=== PATIENT | male | born 1975 | race American Indian/Alaskan Native ===

== ENCOUNTER 2018-03-01 18:35 | Emergency (ER) | payer OTHER ==
[2018-03-01 18:45] VITALS: TEMP 98.9; O2SAT 98
--- NOTE | 2018-03-01 18:48 | ED PDOC ---
Arrival/HPI - General Chief Complaint: ENT Problem Time Seen by Provider: 03/01/18 18:48 Historian: Patient - History of Present Illness Narrative History of Present Illness (Text): 03/01/18 18:48 This 42 yo male with pmh HTN, presents to this ED c/o left sore throat x 3 days. Patient stated he was seen at [facility] x 2 days ago, and he was told he had a viral throat infection. Patient stated symptoms has progressively worsen , and he has difficulty to swallow due to pain. Time/Duration: Other (see hpi) Symptom Onset: Gradual Symptom Course: Worsening Context: Home Past Medical History - Provider Review Nursing Documentation Reviewed: Yes - Infectious Disease Hx of Infectious Diseases: None - Cardiac Hx Hypertension: Yes - Psychiatric Hx Substance Use: No Family/Social History - Physician Review Nursing Documentation Reviewed: Yes Family/Social History: Other (noncontributory) Smoking Status: Never Smoked Hx Alcohol Use: No Hx Substance Use: No Allergies/Home Meds Allergies/Adverse Reactions: Allergies No Known Allergies Allergy (Verified 03/01/18 18:46) Home Medications: Home Meds Medication Instructions Recorded Confirmed Rosuvastatin Calcium [Crestor] 10 mg PO DAILY 03/01/18 03/01/18 Valsartan [Diovan] 80 mg PO DAILY 03/01/18 03/01/18 Review of Systems - Review of Systems Constitutional: Normal. absent: Fatigue, Weight Change, Fevers Eyes: Normal ENT: Sore Throat. absent: Rhinorrhea Respiratory: Normal. absent: SOB, Cough, Sputum, Wheezing Cardiovascular: Normal. absent: Chest Pain, Palpitations Gastrointestinal: Normal. absent: Abdominal Pain, Nausea, Vomiting Genitourinary Male: Normal. absent: Dysuria, Hematuria Musculoskeletal: Normal. absent: Back Pain, Neck Pain, Myalgias Skin: Normal Neurological: Normal. absent: Headache, Dizziness, Focal Weakness, Gait Changes , Speech Changes, Facial Droop, Disequilibrium Endocrine: Normal Hemo/Lymphatic: Normal Psychiatric: Normal Physical Exam Vital Signs Temp Pulse Resp BP Pulse Ox 03/01/18 18:44 98.9 F 86 18 178/124 H 98 Temperature: Afebrile Blood Pressure: Normal Pulse: Regular Respiratory Rate: Normal Appearance: Positive for: Well-Appearing, Non-Toxic, Comfortable Pain Distress: None Mental Status: Positive for: Alert and Oriented X 3 - Systems Exam Head: Present: Atraumatic, Normocephalic Pupils: Present: PERRL Extroacular Muscles: Present: EOMI Conjunctiva: Present: Normal Mouth: Present: Moist Mucous Membranes Pharnyx: Present: ERYTHEMA, EXUDATE. No: TONSILS ENLARGED, Peritonsilar Swelling, Uvular Deviation, Muffled/Hoarse Voice, Strider, Soft Palate/Uvular Edema Neck: Present: Normal Range of Motion, Lymphadenopathy ((+) left anterior cervical lymphadenopathy). No: Meningeal Signs, MIDLINE TENDERNESS, Paraspinal Tenderness Respiratory/Chest: Present: Clear to Auscultation, Good Air Exchange. No: Respiratory Distress, Accessory Muscle Use, Wheezes, Decreased Breath Sounds, Retracting, Rhonchi, Tachypneic Cardiovascular: Present: Regular Rate and Rhythm, Normal S1, S2. No: Murmurs Abdomen: No: Tenderness, Distention, Peritoneal Signs Back: Present: Normal Inspection. No: CVA Tenderness Upper Extremity: Present: Normal Inspection, Normal ROM, NORMAL PULSES, Neurovascularly Intact, Capillary Refill < 2s. No: Cyanosis, Edema Lower Extremity: Present: Normal Inspection, NORMAL PULSES, Normal ROM, Neurovascularly Intact, Capillary Refill < 2 s. No: Edema Neurological: Present: GCS=15, CN II-XII Intact, Speech Normal Skin: Present: Warm, Dry, Normal Color. No: Rashes Psychiatric: Present: Alert, Oriented x 3, Normal Insight, Normal Concentration Medical Decision Making ED Course and Treatment: 03/01/18 21:21 Re-evaluation. Patient feels better. Discussed results and plan with patient who expresses understanding. All questions answered and there is agreement with the plan to discharge home with instructions. Patient stable for discharge. Return if symptoms persist or worsen. Patient tolerated PO medication, and fluids. I recommended patient to f/u ENT in 1-2 days. I reviewed with patient the risk when taking Solumedrol, or Prednisone not only but including AVN, glaucoma, DM, osteoporosis to cite a few. Patient understood risk. he agreed to have these medications. I recommend patient to use for no more than 5 days, and he could stop Prednisone at anytime if symptoms improves. Re-evaluation Time: 19:03 Reassessment Condition: Re-examined, Improved - Lab Interpretations Lab Results: 03/01/18 19:45 03/01/18 19:45 Lab Results 03/01/18 19:45: Grp A Beta Strep Ag Negative 03/01/18 19:45: Sodium 148, Potassium 3.7, Chloride 106, Carbon Dioxide 26, Anion Gap 20, BUN 12, Creatinine 1.3, Est GFR ( Amer) > 60, Est GFR (Non- Af Amer) > 60, Random Glucose 98, Calcium 9.2, Total Bilirubin 0.7, AST 124 H, ALT 51, Alkaline Phosphatase 76, Total Protein 8.6 H, Albumin 4.6, Globulin 4.0 , Albumin/Globulin Ratio 1.1 03/01/18 19:45: WBC 8.4, RBC 5.14, Hgb 15.3, Hct 44.3, MCV 86.2, MCH 29.8, MCHC 34.5, RDW 12.8, Plt Count 348, MPV 9.7, Gran % 70.4 H, Lymph % (Auto) 19.2 L, Harris % (Auto) 9.8 H, Eos % (Auto) 0.2 L, Baso % (Auto) 0.4, Gran # 5.90, Lymph # (Auto) 1.6, Harris # (Auto) 0.8 H, Eos # (Auto) 0.0, Baso # (Auto) 0.03 I have reviewed the lab results: Yes Interpretation: No clinic. lab abnormalty - Medication Orders Current Medication Orders: Discontinued Medications Sodium Chloride (Sodium Chloride 0.9%) 1,000 mls @ 999 mls/hr IV .Q1H1M STA Stop: 03/01/18 19:58 Last Admin: 03/01/18 19:52 Dose: 999 mls/hr eMAR Start Stop Document 03/01/18 19:52 EQ (Rec: 03/01/18 19:52 EQ [id number]) Intravenous Solution Start Date 03/01/18 Start Time 19:52 Methylprednisolone (Solu-Medrol) 125 mg IM STAT STA Stop: 03/01/18 18:59 Last Admin: 03/01/18 19:52 Dose: 125 mg IM Administration Charges Document 03/01/18 19:52 EQ (Rec: 03/01/18 19:52 EQ [id number]) Injection Site MAR Injection Site Left Deltoid Charges for Administration # of IM Administrations 1 Disposition/Present on Arrival - Present on Arrival Any Indicators Present on Arrival: No History of DVT/PE: No History of Uncontrolled Diabetes: No Urinary Catheter: No History of Decub. Ulcer: No History Surgical Site Infection Following: None - Disposition Have Diagnosis and Disposition been Completed?: Yes Diagnosis: Sore throat Disposition: HOME/ ROUTINE Disposition Time: 21:23 Patient Plan: Discharge Condition: IMPROVED Additional Instructions: Call Dr. Corral ENT doctor office for follow up visit in 1-2 days. Take medication as instructed with food. Take OTC Tylenol for pain as needed. Return to emergency if unable to swallow, or worsening symptoms. Prescriptions: Amoxicillin [Amoxil 500 mg Cap] 500 mg PO TID #30 cap Lidocaine 2% Viscous 15 ml PO QID PRN #1 bottle PRN Reason: Sore Throat predniSONE [predniSONE Tab] 60 mg PO DAILY #12 tab Referrals: Abdi Bonner DO [Primary Care Provider] - Follow up with primary Maikel Corral DO [Staff Provider] - Follow up with primary Forms: [facility] ([facility]), WORK NOTE
[2018-03-01] MEDS ORDERED: Sodium Chloride 0.9% 1,000 ML IV STA (18:58)
[2018-03-01 20:25] LABS: ALB/GLOB RATIO 1.1 (1.1-1.8); ALBUMIN 4.6 g/dL (3.0-4.8); ALT/SGPT 51 U/L (7-56); AST/SGOT 124 U/L (17-59); BLOOD UREA NITROGEN 12 mg/dL (7-21); CALCIUM 9.2 mg/dL (8.4-10.5); GFR AFRICAN-AMERICAN > 60; GFR NON-AFRICAN AMERICAN > 60
[2018-03-01 20:28] LABS: BASO # 0.03 K/mm3 (0.0-2.0); BASO % 0.4 % (0.0-3.0); EOS % 0.2 % (1.5-5.0); GRAN # 5.9 (1.4-6.5); GRAN % 70.4 % (50.0-68.0); HEMOGLOBIN 15.3 g/dL (14.0-18.0); LYMPH # 1.6 (1.2-3.4); LYMPH % 19.2 % (22.0-35.0); MEAN CELL VOLUME 86.2 fl (80.0-105.0); MEAN CORPUSCULAR HEMOGLOBIN 29.8 pg (25.0-35.0); MEAN CORPUSCULAR HGB CONC 34.5 g/dl (31.0-37.0); MEAN PLATELET VOLUME 9.7 fl (7.0-11.0); MONO # 0.8 (0.1-0.6); MONO % 9.8 % (1.0-6.0); RBC 5.14 10^6/uL (3.5-6.1); RED CELL DISTRIBUTION WIDTH 12.8 % (11.5-14.5); WHITE BLOOD COUNT 8.4 10^3/ul (4.5-11.0)
[2018-03-01 22:56] VITALS: BP 130/71; PULSE 90; RESP 20
== END 2018-03-01 22:54 | disposition home or self-care (01) ==
LOC: ED 18:35
DX: J02.9 Acute pharyngitis, unspecified (principal); I10 Essential (primary) hypertension
CPT/HCPCS: 80053; 85025; 87070; 87430; 96372; 99283; J2930; J7040